=== PATIENT | female | born 1975 | race Caucasian/White ===

== ENCOUNTER 2021-07-19 23:34 | Emergency (ER) | payer OTHER ==
[2021-07-19 23:39] VITALS: BP 122/77; PULSE 87; TEMP 98.1; BMI 36.6
[2021-07-20] MEDS ORDERED: METHOCARBAMOL 500 MG TABLET PO ONE (00:05)
[2021-07-20] MEDS ORDERED: IBUPROFEN 600 MG TABLET (FP) PO ONE ×2 (00:06→00:09)
[2021-07-20] MEDS ORDERED: LIDOCAINE 5% TOPICAL PATCH TP ONE (00:06)
[2021-07-20] MEDS ORDERED: METHOCARBAMOL 500 MG TABLET ONE (00:09)
[2021-07-20] MEDS ORDERED: LIDOCAINE 5% TOPICAL PATCH ONE (00:09)
[2021-07-20] MEDS ORDERED: LIDOCAINE PATCH REMOVAL MC SCH (22:00)
== END 2021-07-20 01:57 | disposition home or self-care (01) ==
LOC: JER 23:34
DX: M54.5 Low back pain (principal); W18.49XA Other slipping, tripping and stumbling without falling, initial encounter
CPT/HCPCS: 99283-25

== ENCOUNTER 2022-02-02 21:23 | Emergency (ER) | payer OTHER ==
[2022-02-02 21:37] VITALS: BP 125/64; PULSE 68; TEMP 97.4; BMI 38.2
[2022-02-02] MEDS ORDERED: KETOROLAC TROMETHAMINE 30 MG/1 ML VIAL IM ONE (23:28)
[2022-02-02] MEDS ORDERED: diazePAM 5 MG TABLET PO ONE (23:28)
[2022-02-02] MEDS ORDERED: diazePAM 5 MG TABLET ONE (23:55)
[2022-02-02] MEDS ORDERED: KETOROLAC TROMETHAMINE 30 MG/1 ML VIAL ONE (23:56)
== END 2022-02-03 01:24 | disposition home or self-care (01) ==
LOC: JER 21:23
PROC: 3E023GC Introduction of Other Therapeutic Substance into Muscle, Percutaneous Approach (ICD-10-PCS; principal; 2022-02-02)
DX: S46.812A Strain of other muscles, fascia and tendons at shoulder and upper arm level, left arm, initial encounter (principal); Y99.8 Other external cause status
CPT/HCPCS: 93005; 93010; 99284-25